=== PATIENT | male | born 1995 | race Caucasian/White ===

== ENCOUNTER 2017-07-26 19:21 | Emergency (ER) | payer OTHER ==
[~2017-07-26] VITALS: Ht 188 cm; Wt 81.2 kg
[2017-07-26 21:53] VITALS: BP 120/56
== END 2017-07-26 22:02 | disposition home or self-care (01) ==
LOC: EME 19:21 → EDBD 19:21 → EME 22:02
PROC: 3E0234Z Introduction of Serum, Toxoid and Vaccine into Muscle, Percutaneous Approach (ICD-10-PCS; principal; 2017-07-26)
PROC: 0HQ0XZZ Repair Scalp Skin, External Approach (ICD-10-PCS; principal; 2017-07-26)
DX: S01.01XA Laceration without foreign body of scalp, initial encounter (principal); S43.401A Unspecified sprain of right shoulder joint, initial encounter; W01.0XXA Fall on same level from slipping, tripping and stumbling without subsequent striking against object, initial encounter; Y93.01 Activity, walking, marching and hiking; Z23 Encounter for immunization; F90.9 Attention-deficit hyperactivity disorder, unspecified type
CPT/HCPCS: 70450; 73030; 73502